=== PATIENT | female | born 1970 | race Caucasian/White ===

== ENCOUNTER 2022-03-19 13:59 | Inpatient (IN) | payer OTHER ==
[~2022-03-19] VITALS: Ht 170.2 cm; Wt 54.0 kg
[2022-03-19] MEDS ORDERED: HALOPERIDOL LACTATE 5 MG/1 ML VIAL ONE (14:04)
[2022-03-19] MEDS ORDERED: diphenhydrAMINE 50 MG/1 ML VIAL ONE (14:05)
[2022-03-19] MEDS ORDERED: IV NORMAL SALINE 1000 ML BAG IV ONE (14:15)
[2022-03-19 15:28] LABS: HEMATOCRIT 38.9 % (31.2-41.9); MEAN CORPUSCULAR HEMOGLOBIN 34.2 uug (24.7-32.8); MEAN CORPUSCULAR VOLUME 92.6 fL (75.5-95.3); PLATELET COUNT (AUTO) 242 K/uL (179-408)
[2022-03-19 15:31] LABS: ALANINE AMINOTRANSFERASE 130 U/L (14-59); ALKALINE PHOSPHATASE 147 U/L (50-136); ASPARTATE AMINOTRANSFERASE 225 U/L (15-37); BILIRUBIN,DIRECT 0.3 mg/dL (0.0-0.2); BILIRUBIN,TOTAL 1.3 mg/dL (0.2-1.0); CARBON DIOXIDE 28 mmol/L (21-32); CREATININE 0.6 mg/dL (0.6-1.3); GLUCOSE 107 mg/dL (74-106); POTASSIUM 3.1 mmol/L (3.5-5.1); TOTAL PROTEIN, SERUM 8.8 g/dL (6.4-8.2); UREA NITROGEN, BLOOD 13 mg/dL (7-18)
--- NOTE | 2022-03-19 15:40 | NUR ---
Social work consult was requested for a patient in the emergency room to assess current living situation. Patient is 52-year-old white female. Patient is disoriented and confused. SW spoke to the patients brother and primary contact, Qamar Odom ([phone]) at the patients bedside. Qamar Odom ([phone]) lives in [place], [place] and flew to [place] today because of the patients condition. Qamar Odom ([phone]) states the patient lives alone at [address], [place] [address]. Qamar Odom ([phone]) states the patient hasnt been taking her hypothyroid medications. Qamar Odom ([phone]) states the patient is currently working for a [employer]. Qamar Odom ([phone]) states the patient does not have a history of substance abuse and he states the patient does not have a history of psychiatric diagnosis. Qamar Odom ([phone]) states he will be in [place] at least until Wednesday. LALO will continue to follow up.
[2022-03-19 15:52] LABS: ACETAMINOPHEN < 2.0 ug/mL (10-30); CHLORIDE 68 mmol/L (98-107)
[2022-03-19 16:06] LABS: ETHANOL < 3 MG/DL (0-0)
[2022-03-19 16:10] LABS: THYROID STIMULATING HORMONE 98.059 mIU/mL (0.358-3.740)
--- NOTE | 2022-03-19 16:28 | NUR ---
Dr Sanchez spoke yto dr dickey, machine wood sander.
[2022-03-19] MEDS ORDERED: HALOPERIDOL LACTATE 5 MG/1 ML VIAL IM ONE (16:45)
[2022-03-19] MEDS ORDERED: diphenhydrAMINE 50 MG/1 ML VIAL IM ONE (16:45)
[2022-03-19] MEDS ORDERED: LEVOTHYROXINE SODIUM 100 MCG VIAL IV ONE ×2 (17:00→17:09)
[2022-03-19 17:16] LABS: CREATININE 0.6 mg/dL (0.6-1.3); POTASSIUM 3.3 mmol/L (3.5-5.1)
--- NOTE | 2022-03-19 17:23 | NUR ---
Pt pulled Iv line out from Rt wrist. Placed a new one on RAC.
--- NOTE | 2022-03-19 18:10 | NUR ---
MRSA and COVID swabs collected and sent to LAB.
[2022-03-19 20:07] LABS: CREATININE 0.5 mg/dL (0.6-1.3); POTASSIUM 2.9 mmol/L (3.5-5.1)
[2022-03-19] MEDS ORDERED: ACETAMINOPHEN 325 MG TABLET PO PRN (20:15)
[2022-03-19] MEDS ORDERED: ONDANSETRON 4 MG/2 ML VIAL IV PRN (20:15)
[2022-03-19] MEDS ORDERED: OLANZAPINE 10 MG VIAL IM PRN (20:15)
[2022-03-19] MEDS ORDERED: MORPHINE SULFATE 2 MG/1 ML DISP.SYRIN IV PRN (20:15)
--- NOTE | 2022-03-19 20:30 | NUR ---
Ultrasound at bedside.
[2022-03-19] MEDS ORDERED: IV NS 1000 ML 1,000 ML IV PRN (21:15)
[2022-03-19] MEDS ORDERED: ENOXAPARIN SODIUM 40 MG/0.4 ML DISP.SYRIN SQ ONE (21:48)
[2022-03-19] MEDS ORDERED: DOCUSATE SODIUM 100 MG CAPSULE PO ONE (21:48)
[2022-03-19] MEDS ORDERED: VANCOMYCIN IV 1,250 MG in IV DEXTROSE 5% 250 ML IV ONE (22:00)
[2022-03-19 22:19] LABS: CREATININE 0.5 mg/dL (0.6-1.3); POTASSIUM 3.6 mmol/L (3.5-5.1)
[2022-03-19] MEDS: DOCUSATE SODIUM 100 MG CAPSULE PO SCH (22:21)
[2022-03-19] MEDS: ENOXAPARIN SODIUM 40 MG/0.4 ML DISP.SYRIN SQ SCH (22:21)
[2022-03-19] MEDS: PIPERACILLIN SODIUM/TAZOBACTAM 3.375 G in IV DEXTROSE 5% 50 ML IV SCH (22:29)
--- NOTE | 2022-03-19 23:30 | NUR ---
Received call from Dr. Mai, ordered BMP @6410 and wants hodgson catheter in place. wants to be informed if Sodium is above 115.
[2022-03-19] MEDS ORDERED: POTASSIUM CHLORIDE 200 ML ONE (23:52)
[2022-03-20] MEDS: POTASSIUM CHLORIDE 10 MEQ, LIDOCAINE-MPF 1% 1 ML in IV DEXTROSE 5% 100 ML IV SCH ×6 (00:01→02:06)
--- NOTE | 2022-03-20 00:33 | NUR ---
Inserted hodgson catheter, pt tolerated procedure well, output of >1100ml urine, urine sample sent to lab.
[2022-03-20 01:27] LABS: *BILIRUBIN,URIN NEGATIVE (NEGATIVE); *CLARITY,URINE CLEAR (CLEAR); *COLOR,URINE YELLOW (YELLOW); *KETONES,URINE 1+ (NEGATIVE); *UROBILINOGEN,URINE 0.2 E.U./dl (NORMAL); LEUKOCYTE ESTERASE ,URINE NEGATIVE (NEGATIVE); NITRITE, URINE NEGATIVE (NEGATIVE); UGLUCOSE NEGATIVE (NEGATIVE)
[2022-03-20 01:31] LABS: *BLOOD, URINE TRACE (NEGATIVE)
[2022-03-20 01:43] LABS: *AMPHETAMINE, URINE NEGATIVE (NEGATIVE); *CANNABINOID, URINE NEGATIVE (NEGATIVE); *COCCAINE, URINE NEGATIVE (NEGATIVE); *OPIATE, URINE NEGATIVE (NEGATIVE); *PHENCYCLIDINE SCREEN,URINE NEGATIVE (NEGATIVE)
[2022-03-20 02:17] LABS: CREATININE 0.5 mg/dL (0.6-1.3); POTASSIUM 3.1 mmol/L (3.5-5.1)
[2022-03-20 02:47] LABS: BACTERIA,URINE FEW /HPF (NONE SEEN); RBC,URINE 0-3 /HPF (0-3); SQUAMOUS EPITHELIAL CELL,UR FEW /HPF (NONE SEEN)
--- NOTE | 2022-03-20 03:03 | NUR ---
Called [facility] to page Dr. Mai to update on critical lab values: Na 110, Cl 74
--- NOTE | 2022-03-20 03:13 | NUR ---
Received call back from Dr. Mai, new orders BMP@0430, urine sodium and osmolality 0430, and increase IV NS fluid to 75 ml/hr.
[2022-03-20] MEDS: PIPERACILLIN SODIUM/TAZOBACTAM 3.375 G in IV DEXTROSE 5% 50 ML IV SCH ×4 (03:55→21:16)
[2022-03-20 04:46] LABS: CREATININE 0.5 mg/dL (0.6-1.3); POTASSIUM 3.4 mmol/L (3.5-5.1)
[2022-03-20] MEDS ORDERED: POTASSIUM CHLORIDE 100 ML ONE (05:26)
[2022-03-20] MEDS ORDERED: POTASSIUM CHLORIDE 50 ML IV SCH (05:30)
[2022-03-20] MEDS: POTASSIUM CHLORIDE 50 ML IV SCH (05:39)
[2022-03-20] MEDS ORDERED: IV SODIUM CHLORIDE 3% 500 ML IV PRN (07:00)
--- NOTE | 2022-03-20 07:14 | NUR ---
Report given to Christal rey.
[2022-03-20] MEDS ORDERED: IV SODIUM CHLORIDE 3% 500 ML IV SCH (07:18)
--- NOTE | 2022-03-20 07:22 | NUR ---
Received endorsement from Timmy ANDERSON
[2022-03-20 07:37] LABS: BILIRUBIN,TOTAL 0.8 mg/dL (0.2-1.0); CREATININE 0.6 mg/dL (0.6-1.3); MAGNESIUM 1.9 mg/dL (1.8-2.4); PHOSPHOROUS 2.2 mg/dL (2.5-4.9); POTASSIUM 3.4 mmol/L (3.5-5.1); TOTAL PROTEIN, SERUM 6.4 g/dL (6.4-8.2); URIC ACID 1.4 mg/dL (2.6-6.0)
[2022-03-20 07:38] LABS: THYROID STIMULATING HORMONE 106.434 mIU/mL (0.358-3.740)
--- NOTE | 2022-03-20 07:42 | NUR ---
Received lab report, Na 112.
[2022-03-20] MEDS: VANCOMYCIN IV 1,000 MG in IV DEXTROSE 5% 250 ML IV SCH ×3 (07:50→22:00)
--- NOTE | 2022-03-20 08:00 | NUR ---
Informed Dr. Kent about Na 112. Ordered fluid intake should only be no more than 800cc/day. Also emphasized that he ordered to stop the NS earlier today, and BMP on 0830 stat for f/u eval.
[2022-03-20 08:12] LABS: HEMATOCRIT 31.2 % (31.2-41.9); MEAN CORPUSCULAR HEMOGLOBIN 33.8 uug (24.7-32.8); MEAN CORPUSCULAR VOLUME 93.3 fL (75.5-95.3); PLATELET COUNT (AUTO) 221 K/uL (179-408)
--- NOTE | 2022-03-20 08:28 | NUR ---
Called [facility] to lauren Burrell NP.
--- NOTE | 2022-03-20 08:30 | NUR ---
Called [facility] to page Dr. Redman. Regarding Dr. Mai's request to change pt's status to ICU.
--- NOTE | 2022-03-20 08:34 | NUR ---
Spoke to Dr. Redman, pt will now be ICU.
[2022-03-20] MEDS: PANTOPRAZOLE SODIUM 40 MG VIAL IV SCH (09:00)
[2022-03-20] MEDS ORDERED: FUROSEMIDE 20 MG/2 ML VIAL IV SCH (09:00)
[2022-03-20] MEDS ORDERED: PANTOPRAZOLE SODIUM 40 MG VIAL ONE (09:24)
[2022-03-20] MEDS ORDERED: PIPERACILLIN/TAZOBACTAM/D5W 50 ML IV ONE (09:24)
[2022-03-20] MEDS ORDERED: LEVOTHYROXINE SODIUM 100 MCG VIAL IV ONE ×2 (09:28→10:07)
[2022-03-20 09:34] LABS: CREATININE 0.6 mg/dL (0.6-1.3); POTASSIUM 3.8 mmol/L (3.5-5.1)
--- NOTE | 2022-03-20 09:39 | NUR ---
Received lab report, Na 111. notified.
[2022-03-20] MEDS ORDERED: NEUTRA PHOS PACKET PO ONE (09:45)
--- NOTE | 2022-03-20 09:45 | NUR ---
Received T.O from Dr. Mai, BMP stat q2h starting at 1030am. Noted and carried out.
--- NOTE | 2022-03-20 10:27 | NUR ---
Spoke to Dr. Redman about pt's level of care status. Pt will be on MOON per Dr. Redman. Dr. Mai has been notified.
--- NOTE | 2022-03-20 10:28 | NUR ---
Hold IV Vancomycin dose at 2200 if the Vanco-trough came back above 20 per pharmacist. Will inform charge nurse during transition.
[2022-03-20 10:43] LABS: CREATININE 0.5 mg/dL (0.6-1.3); POTASSIUM 3.6 mmol/L (3.5-5.1)
[2022-03-20 12:50] LABS: CREATININE 0.6 mg/dL (0.6-1.3); POTASSIUM 3.6 mmol/L (3.5-5.1)
--- NOTE | 2022-03-20 13:35 | NUR ---
Pt had bowel movement x1, amt = large, consistency = soft, dark green in color.
--- NOTE | 2022-03-20 14:07 | NUR ---
IV NS 3% 500ml discontinued per Dr. Mai.
--- NOTE | 2022-03-20 14:29 | NUR ---
Received report regarding result of CT Abdomen/Pelvis, suspicious for acute pancreatitis.
--- NOTE | 2022-03-20 14:36 | NUR ---
Will review and redo I&O to be totaled at the end of the shift.
[2022-03-20 14:43] LABS: CREATININE 0.6 mg/dL (0.6-1.3)
[2022-03-20 14:49] LABS: POTASSIUM 2.2 mmol/L (3.5-5.1)
--- NOTE | 2022-03-20 15:27 | NUR ---
Received lab report: Ca = 5.0, Na = 110, K = 2.2, Glucose = 613. Dr. Redman was notified, ordered to do accu check, result 127.
--- NOTE | 2022-03-20 15:27 | NUR ---
Dr. Redman ordered to d/c q2h BMP (ordered by Dr. Mai) and have BMP @ 1800 instead. Noted and carried out.
--- NOTE | 2022-03-20 16:45 | NUR ---
Pt had BM #2, amt.= small, consistency = soft.
[2022-03-20 16:54] LABS: CREATININE 0.7 mg/dL (0.6-1.3); POTASSIUM 3.9 mmol/L (3.5-5.1)
--- NOTE | 2022-03-20 17:00 | NUR ---
Rt=039, MD notified. Ordered to restart 3% NS 500ml at 25cc/hr for 6hours only and BMP at 2100. Noted and carried out.
[2022-03-20 18:49] LABS: CREATININE 0.7 mg/dL (0.6-1.3); POTASSIUM 3.3 mmol/L (3.5-5.1)
--- NOTE | 2022-03-20 19:08 | NUR ---
Na = 115, notified Dr. Redman and Dr. Mai.
--- NOTE | 2022-03-20 19:09 | NUR ---
Endorsed to Timmy TEJEDA.
[2022-03-20] MEDS: DOCUSATE SODIUM 100 MG CAPSULE PO SCH (21:00)
[2022-03-20] MEDS ORDERED: ENOXAPARIN SODIUM 40 MG/0.4 ML DISP.SYRIN SQ ONE (21:08)
[2022-03-20] MEDS: ENOXAPARIN SODIUM 40 MG/0.4 ML DISP.SYRIN SQ SCH (21:17)
--- NOTE | 2022-03-20 21:34 | NUR ---
Pt had a bowel movement, diarrhea, held colace.
--- NOTE | 2022-03-20 22:10 | NUR ---
Held Vancomycin due to trough > 20, 34.2.
[2022-03-21] MEDS: PIPERACILLIN SODIUM/TAZOBACTAM 3.375 G in IV DEXTROSE 5% 50 ML IV SCH ×4 (03:44→22:37)
[2022-03-21 04:13] LABS: CREATININE 0.8 mg/dL (0.6-1.3); POTASSIUM 4.1 mmol/L (3.5-5.1)
[2022-03-21] MEDS: VANCOMYCIN IV 1,000 MG in IV DEXTROSE 5% 250 ML IV SCH (06:00)
[2022-03-21 06:25] LABS: HEMATOCRIT 30.3 % (31.2-41.9); MEAN CORPUSCULAR HEMOGLOBIN 33.8 uug (24.7-32.8); MEAN CORPUSCULAR VOLUME 94.4 fL (75.5-95.3); PLATELET COUNT (AUTO) 188 K/uL (179-408)
--- NOTE | 2022-03-21 06:39 | NUR ---
Received call back from Dr. Latrell Mai, new orders of bolus D5W 1000ml IV, and D5W 200cc/hr.
[2022-03-21 06:42] LABS: BILIRUBIN,TOTAL 0.7 mg/dL (0.2-1.0); MAGNESIUM 1.9 mg/dL (1.8-2.4); PHOSPHOROUS 3.3 mg/dL (2.5-4.9); POTASSIUM 3.4 mmol/L (3.5-5.1); TOTAL PROTEIN, SERUM 5.7 g/dL (6.4-8.2)
[2022-03-21] MEDS ORDERED: IV D5W 1000ML 1,000 ML IV ONE (06:45)
--- NOTE | 2022-03-21 06:50 | NUR ---
Received call back from Dr. Latrell Mai, cancel the D5W order due to Na 118, repeat BMP@ 0900.
--- NOTE | 2022-03-21 07:12 | NUR ---
Report given to Christal rey.
--- NOTE | 2022-03-21 07:17 | NUR ---
Received endorsement from Timmy ANDERSON
[2022-03-21] MEDS ORDERED: PANTOPRAZOLE SODIUM 40 MG VIAL ONE (09:08)
[2022-03-21] MEDS: PANTOPRAZOLE SODIUM 40 MG VIAL IV SCH (09:20)
[2022-03-21 09:36] LABS: POTASSIUM 3.3 mmol/L (3.5-5.1)
--- NOTE | 2022-03-21 09:52 | NUR ---
Lab report, Px=821. Dr. Redman and Dr. Mai notified.
--- NOTE | 2022-03-21 09:53 | NUR ---
Dr. Mai ordered another BMP @ 12pm. Noted and carried out.
[2022-03-21] MEDS ORDERED: POTASSIUM CHLORIDE 20 MEQ TAB.PRT.SR PO ONE (10:30)
--- NOTE | 2022-03-21 10:49 | NUR ---
Viviana adler in EDM - 03/21/22 at 1115 by FRANCOIS BP =92/48. Restarting Levophed.
[2022-03-21] MEDS ORDERED: POTASSIUM CHLORIDE 20 MEQ TAB.PRT.SR ONE (10:59)
[2022-03-21 13:02] LABS: CREATININE 1.2 mg/dL (0.6-1.3); POTASSIUM 3.2 mmol/L (3.5-5.1)
[2022-03-21 14:19] LABS: ABG BASE EXCESS -3.1 mmol/L; ABG HCO3 20.4 mmol/L; ABG PCO2 31.8 mmHg (35.0-45.0); ABG PH 7.426 (7.350-7.450); ABG PO2 213.6 mmHg (75.0-100.0); ABG SITE RIGHT RADIAL; COHb 0.3 % (0.5-1.5); MetHb 0.4 % (0.0-1.5); O2Hb 98.5 % (94.0-97.0); VENT MODE Nasal Cannula
--- NOTE | 2022-03-21 15:30 | NUR ---
Pt was desating to less than 50% when sleeping x2. Notified Dr. Redman, ordered CXR and ABG stat. ABG and CXR were normal, relayed to Dr. Redman. [facility].
--- NOTE | 2022-03-21 17:10 | NUR ---
On NPO solomon 03/22/22 Celio
[2022-03-21] MEDS ORDERED: ACETAMINOPHEN 650 MG SUPP.RECT RC PRN (17:15)
--- NOTE | 2022-03-21 17:24 | NUR ---
Seen by Dr. Redman.
[2022-03-21] MEDS ORDERED: LEVOTHYROXINE SODIUM 100 MCG VIAL IV ONE ×2 (17:56→18:12)
[2022-03-21 18:12] LABS: CREATININE 1.1 mg/dL (0.6-1.3); POTASSIUM 3.2 mmol/L (3.5-5.1)
[2022-03-21] MEDS: POTASSIUM CHLORIDE 20 MEQ in IV D5/ 0.9% NACL 1,000 ML IV PRN ×2 (18:19→22:37)
--- NOTE | 2022-03-21 18:35 | NUR ---
Na = 121. Notified Dr. Redman and Dr. Mai.
--- NOTE | 2022-03-21 19:10 | NUR ---
Endorsed to Timmy TEJEDA.
--- NOTE | 2022-03-21 21:00 | NUR ---
Report given to Stefany TEJEDA MOON.
--- NOTE | 2022-03-21 21:40 | NUR ---
REPORT WAS CALLED [id number] AND GIVEN TO KSENIA THE RN. PATIENT WAS TRANSFERED TO ROOM 321 FOR A CONTINUED EXPERT CARE.
[2022-03-21] MEDS: ENOXAPARIN SODIUM 40 MG/0.4 ML DISP.SYRIN SQ SCH (22:40)
[2022-03-21 22:46] VITALS: BP 119/87
[2022-03-22] MEDS: PIPERACILLIN SODIUM/TAZOBACTAM 3.375 G in IV DEXTROSE 5% 50 ML IV SCH ×2 (03:00→09:37)
[2022-03-22 04:00] VITALS: BP 114/55
[2022-03-22 04:36] VITALS: BP 114/55
--- NOTE | 2022-03-22 06:00 | NUR ---
2109-RECEIVED PT FROM ER AND REPORT GIVEN FROM NIKHIL POWERS. PT HAS BEEN A/OX3-4. VS HAVE BEEN STABLE. IV I/P VIA R/L ARM. PT HAS RESPS REG/UNLAB. PT IS ON RA. PT HAS F/C-U/O FAIR/AVANI-CLR. PT DENIES ANY PAIN. PT HAS SKIN TEAR ON LEFT ARM. PT HAS REDNESS OF BUTTOCKS WITH OLD SCARRING. PICTURES TAKEN. PT ENDORSED TO DAYSHIFT RN IN STABLE COND. CATHY TEJEDA
[2022-03-22] MEDS ORDERED: PANTOPRAZOLE SODIUM 40 MG TABLET.DR PO SCH (07:00)
[2022-03-22 07:28] LABS: HEMATOCRIT 28.2 % (31.2-41.9); MEAN CORPUSCULAR HEMOGLOBIN 34.6 uug (24.7-32.8); MEAN CORPUSCULAR VOLUME 94.9 fL (75.5-95.3); PLATELET COUNT (AUTO) 164 K/uL (179-408)
[2022-03-22 07:41] LABS: BILIRUBIN,TOTAL 0.5 mg/dL (0.2-1.0); CREATININE 1.3 mg/dL (0.6-1.3); MAGNESIUM 1.8 mg/dL (1.8-2.4); PHOSPHOROUS 3.1 mg/dL (2.5-4.9); POTASSIUM 3.3 mmol/L (3.5-5.1); TOTAL PROTEIN, SERUM 5.5 g/dL (6.4-8.2); VANCOMYCIN,RANDOM 20.3 ug/mL (18.0-26.0)
[2022-03-22 07:59] VITALS: BP 96/61
--- NOTE | 2022-03-22 08:00 | NUR ---
Pt. alert oriented x 2 with episodes of confusion. Denies any pain, comfortable and no s/s of sob/respiratory distress. Keep pt. NPO as ordered. Edema on the shelly. eyelids noted.
[2022-03-22 08:29] LABS: THYROID STIMULATING HORMONE 108.697 mIU/mL (0.358-3.740)
[2022-03-22] MEDS: PANTOPRAZOLE SODIUM 40 MG VIAL IV SCH (09:33)
[2022-03-22] MEDS: LEVOTHYROXINE SODIUM 100 MCG VIAL IV SCH (10:39)
[2022-03-22] MEDS: POTASSIUM CHLORIDE 50 ML IV SCH ×2 (10:40→11:40)
[2022-03-22 11:45] VITALS: BP 111/70
--- NOTE | 2022-03-22 12:30 | NUR ---
Notified Dr Redman pt is hypothermic 94.6. Initiated carolina resendiz. Will continue to monitor pt.
--- NOTE | 2022-03-22 14:30 | NUR ---
Notified Dr Redman pt is still hypothermic 94.0 . No new orders received. Will continue to monitor.
[2022-03-22 15:18] LABS: CREATININE 1.4 mg/dL (0.6-1.3); POTASSIUM 3.7 mmol/L (3.5-5.1)
--- NOTE | 2022-03-22 16:00 | NUR ---
Notified Dr Mai of repeat BNP results drawn at 1500. Notified low urine output of 60cc within 4 hours. New order received and carried out.
[2022-03-22 16:54] VITALS: BP 92/54
[2022-03-22] MEDS: IV NS 1000 ML 1,000 ML IV PRN (17:27)
--- NOTE | 2022-03-22 18:30 | NUR ---
Current pt. temperature 97.4. Pt comfortable, frequent skin check done q 30 mins. No redness noted from carolina hugger/warming blanket..
[2022-03-22] MEDS: ENOXAPARIN SODIUM 40 MG/0.4 ML DISP.SYRIN SQ SCH (21:29)
[2022-03-22 22:14] VITALS: BP 92/49
[2022-03-23 04:17] VITALS: BP 100/59
[2022-03-23 07:03] LABS: HEMATOCRIT 27.2 % (31.2-41.9); MEAN CORPUSCULAR HEMOGLOBIN 34.8 uug (24.7-32.8); MEAN CORPUSCULAR VOLUME 95.5 fL (75.5-95.3); PLATELET COUNT (AUTO) 163 K/uL (179-408)
[2022-03-23 07:16] LABS: BILIRUBIN,TOTAL 0.5 mg/dL (0.2-1.0); CREATININE 1.6 mg/dL (0.6-1.3); MAGNESIUM 1.7 mg/dL (1.8-2.4); PHOSPHOROUS 2.6 mg/dL (2.5-4.9); POTASSIUM 3.7 mmol/L (3.5-5.1); TOTAL PROTEIN, SERUM 5.8 g/dL (6.4-8.2)
--- NOTE | 2022-03-23 07:30 | NUR ---
Pt hypothermic temp 94.0 put carolina hugger (warming blanket) back on and notified dr rdz of low temp. pt lethargic unable to communicate. Turned pt q 2 hrs implemented. IV infusing as ordered. Pt alert x 1 to her name - pt forget. Left FA skin take noted - awaiting wound consult. will continue to monitor patient.
[2022-03-23] MEDS: LEVOTHYROXINE SODIUM 100 MCG VIAL IV SCH (08:25)
[2022-03-23 08:27] VITALS: BP 107/77
[2022-03-23] MEDS: PANTOPRAZOLE SODIUM 40 MG VIAL IV SCH (08:27)
[2022-03-23] MEDS ORDERED: MAGNESIUM SULFATE/D5W 100 ML IV SCH (11:00)
[2022-03-23] MEDS ORDERED: LEVOTHYROXINE SODIUM 100 MCG VIAL IV ONE (11:00)
[2022-03-23 12:03] VITALS: BP 104/56
--- NOTE | 2022-03-23 14:33 | NUR ---
PT temp 97.6 warming blanket off pt. frequent skin check implemented. No redness noted on skin. brother Qamar at bedside. Pt more awake and alert. Pt alert to her name and place. Pt using her phone. Will continue to monitor patient.
[2022-03-23] MEDS: IV NS 1000 ML 1,000 ML IV PRN (15:30)
[2022-03-23 16:47] VITALS: BP 108/66
--- NOTE | 2022-03-23 18:39 | NUR ---
Kept warming blanket on lowest setting. current temp 98.4 frequent skin check done and skin intact no burned skin noted
[2022-03-23 20:00] VITALS: BP 112/61
[2022-03-23] MEDS: ENOXAPARIN SODIUM 40 MG/0.4 ML DISP.SYRIN SQ SCH (20:24)
[2022-03-24 01:02] VITALS: BP 128/75
[2022-03-24] MEDS: IV NS 1000 ML 1,000 ML IV PRN ×2 (02:24→13:26)
[2022-03-24 04:20] VITALS: BP 119/79
--- NOTE | 2022-03-24 06:14 | NUR ---
Patient rested well in between care; pt temp as charted; continued warming machine; pt more alert and oriented x3; needs attended; continue to monitor; continue plan of care.
[2022-03-24 06:37] LABS: CREATININE 1.6 mg/dL (0.6-1.3); MAGNESIUM 2.1 mg/dL (1.8-2.4); POTASSIUM 3.4 mmol/L (3.5-5.1)
--- NOTE | 2022-03-24 08:00 | NUR ---
Pt is in no acute distress. Pt alert and oriented x 4. Pts temp 96.4 will continue with the warming blanket on low settings. applied mepilex pt's left arm skin tare awaiting wound consult.
[2022-03-24] MEDS: PANTOPRAZOLE SODIUM 40 MG VIAL IV SCH (08:44)
[2022-03-24] MEDS: LEVOTHYROXINE SODIUM 100 MCG VIAL IV SCH (08:44)
[2022-03-24] MEDS ORDERED: POTASSIUM CHLORIDE 50 ML IV SCH (10:30)
[2022-03-24 10:57] VITALS: BP 118/83
[2022-03-24 13:23] LABS: *BILIRUBIN,URIN NEGATIVE (NEGATIVE); *BLOOD, URINE NEGATIVE (NEGATIVE); *CLARITY,URINE CLEAR (CLEAR); *COLOR,URINE YELLOW (YELLOW); *KETONES,URINE NEGATIVE (NEGATIVE); *UROBILINOGEN,URINE 0.2 E.U./dl (NORMAL); LEUKOCYTE ESTERASE ,URINE NEGATIVE (NEGATIVE); NITRITE, URINE NEGATIVE (NEGATIVE); PH,URINE 5.5 (5.0-8.0); UGLUCOSE NEGATIVE (NEGATIVE)
[2022-03-24 13:35] LABS: *CREATININE,URINE 40.1 mg/dL (30-125); *URINE TOTAL PROTEIN RANDOM 8.3 mg/dL (<150/24HR)
[2022-03-24 15:42] VITALS: BP 111/75
--- NOTE | 2022-03-24 15:56 | NUR ---
LALO consult was requested for a patient on [facility] for mental health resources. Patient is a 52-year-old female admitted to the hospital for hyponatremia. Patient is alert and oriented X4. Patient presents with anxious mood and congruent affect. Patient states that her primary contact is her brother, Qamar Odom ([phone]) and her mother, Ervin ([phone]) and they live in [place]. Patient states she currently resides at [address], [place] [address]. Patient states she is not currently driving, does not have any medical equipment at home and is not employed. Patient states she filed for unemployment in February. Patient denies a history of substance abuse and the toxicology report is negative. Patient denies a history of psychiatric diagnosis. Patient denies suicidal or homicidal ideation. LALO provided the patient with the mental health resource for [facility] [address] [place] [address] ([phone]), [facility] [address] [address]. [facility] [address] [address], and [facility] [address] [address], [place] [id number]. Patient states her plan for discharge is to go home to [address], [place] [address].
--- NOTE | 2022-03-24 19:40 | NUR ---
Received patient in bed, alert oriented, no sob no chest pain, on bear hugger current temp 98.7, patient has no complain of pain, hodgson cath patent, draining with yellow color urine, with lower extremities edema, and facial/eye orbital mild swelling when received, patient eating dinner, tolerate well, calm and cooperative at this time, con to monitor.
[2022-03-24 20:00] VITALS: BP 143/122
[2022-03-24] MEDS: ENOXAPARIN SODIUM 40 MG/0.4 ML DISP.SYRIN SQ SCH (21:20)
[2022-03-25] MEDS: IV NS 1000 ML 1,000 ML IV PRN ×3 (01:30→21:00)
--- NOTE | 2022-03-25 04:35 | NUR ---
Patient asleep but arousable, no sob no chest pain, sinus rhythm on tele, no complain of pain, patient calm and cooperative at this time, cont on bear hugger current temp 98.8 cont to monitor.
[2022-03-25 06:51] VITALS: BP 128/81
[2022-03-25 06:56] LABS: HEMATOCRIT 22.7 % (31.2-41.9); MEAN CORPUSCULAR HEMOGLOBIN 34.7 uug (24.7-32.8); MEAN CORPUSCULAR VOLUME 96.9 fL (75.5-95.3); PLATELET COUNT (AUTO) 141 K/uL (179-408)
[2022-03-25 07:12] LABS: BILIRUBIN,TOTAL 0.3 mg/dL (0.2-1.0); CREATININE 1.6 mg/dL (0.6-1.3); MAGNESIUM 1.7 mg/dL (1.8-2.4); POTASSIUM 3.2 mmol/L (3.5-5.1); TOTAL PROTEIN, SERUM 5.3 g/dL (6.4-8.2)
--- NOTE | 2022-03-25 08:00 | NUR ---
AWAKE ALERT AND VERBALLY RESPONSIVE, ANSWERS SIMPLE QUESTIONS APPROPRIATELY. WARM BLANKET DISCONTINUED. TEMP RECTALLY 98.1. NO SS OF PAIN OR DISTRESS. SR ON MONITOR
[2022-03-25 08:05] VITALS: BP 123/79
[2022-03-25] MEDS: PANTOPRAZOLE SODIUM 40 MG VIAL IV SCH (09:06)
[2022-03-25] MEDS: LEVOTHYROXINE SODIUM 100 MCG VIAL IV SCH (09:14)
[2022-03-25] MEDS ORDERED: POTASSIUM CHLORIDE 10 MEQ TAB.PRT.SR PO ONE (11:00)
--- NOTE | 2022-03-25 11:30 | NUR ---
SEEN BY DR ANDERSON FOR FOLLOW-UP VISIT, STATUS CHANGED TO TELE. SEEN BY PHYSICAL THERAPIST PATIENT PARTICIPATED AND TOLERATED WELL. SEE NOTES
[2022-03-25 11:42] VITALS: BP 126/84
[2022-03-25] MEDS ORDERED: MAGNESIUM OXIDE 400 MG TABLET PO ONE (12:00)
--- NOTE | 2022-03-25 12:26 | NUR ---
WOUND CARE CONSULT: PT PRESENTS WITH LEFT ARM SKIN TEAR, PRESENT ON ADMISSION. RECOMMENDATIONS MADE FOR SKIN PROTECTION AND WOUND CARE. DISCUSSED WITH NURSING STAFF. ANT AYN. IN AGREEMENT WITH PLAN OF CARE. Addendum: 03/25/22 at 1228 by YUSUF FORD RN Amended: Links added.
[2022-03-25 15:41] VITALS: BP 132/90
--- NOTE | 2022-03-25 16:20 | NUR ---
CAIN CATH DISCONTINUED, PATIENT ALSO HAD LARGE AMOUNT OF LOOSE STOOL. KEPT CLEAN AND DRY
--- NOTE | 2022-03-25 19:35 | NUR ---
Patient alert oriented, no sob no chest pain, continent of bladder, assisted to commode for bladder eliminations, no complain of pain, cont to monitor.
[2022-03-25 20:00] VITALS: BP 120/84
[2022-03-25] MEDS: ENOXAPARIN SODIUM 40 MG/0.4 ML DISP.SYRIN SQ SCH (22:01)
[2022-03-26] VITALS: BP 128/81
--- NOTE | 2022-03-26 05:50 | NUR ---
Patient asleep, no sob no chest pain, sinus rhythm on tele, no complain of pain, uses bedside commode and diaper for urination, cont to monitor.
[2022-03-26 06:13] VITALS: BP 113/70
[2022-03-26 07:22] LABS: CREATININE 1.5 mg/dL (0.6-1.3); MAGNESIUM 1.7 mg/dL (1.8-2.4); POTASSIUM 3.6 mmol/L (3.5-5.1)
--- NOTE | 2022-03-26 07:41 | NUR ---
UP ON THE EDGE OF BED ALERT AND COHERENT , ANSWERS SIMPLE QUESTIONS APPROPRIATELY. INCONTINENT OF URINE AM CARE DONE. SR ON MONITOR
[2022-03-26] MEDS: PANTOPRAZOLE SODIUM 40 MG VIAL IV SCH (08:20)
[2022-03-26] MEDS: LEVOTHYROXINE SODIUM 100 MCG VIAL IV SCH (08:20)
[2022-03-26] MEDS: IV NS 1000 ML 1,000 ML IV PRN ×2 (08:22→17:48)
--- NOTE | 2022-03-26 10:50 | NUR ---
SW spoke to patient and patients mother at bedside. Patient is alert and oriented X4. Patient states she is not open to a board and care, but is open to home health services. SW informed case assistantMilo.
[2022-03-26] MEDS ORDERED: MAGNESIUM SULFATE/D5W 100 ML IV SCH (11:30)
[2022-03-26 11:52] VITALS: BP 134/95
--- NOTE | 2022-03-26 12:00 | NUR ---
CONTINUE GOOD PARTICIPATION WITH PT SEE NOTESSR ON MONITOR
[2022-03-26 16:18] VITALS: BP 136/83
[2022-03-26 20:00] VITALS: BP 118/66
[2022-03-26] MEDS: ENOXAPARIN SODIUM 40 MG/0.4 ML DISP.SYRIN SQ SCH (21:04)
[2022-03-27] VITALS: BP 96/69
[2022-03-27 04:00] VITALS: BP 118/78
[2022-03-27] MEDS: IV NS 1000 ML 1,000 ML IV PRN ×3 (04:12→15:00)
[2022-03-27] MEDS: LEVOTHYROXINE SODIUM 200 MCG TABLET PO SCH (06:26)
[2022-03-27] MEDS: PANTOPRAZOLE SODIUM 40 MG TABLET.DR PO SCH (06:27)
[2022-03-27 06:35] LABS: CREATININE 1.4 mg/dL (0.6-1.3); MAGNESIUM 1.9 mg/dL (1.8-2.4); POTASSIUM 3.8 mmol/L (3.5-5.1)
[2022-03-27 11:52] VITALS: BP 131/83
[2022-03-27 15:48] VITALS: BP 137/77
[2022-03-27 20:00] VITALS: BP 125/79
[2022-03-27] MEDS: ENOXAPARIN SODIUM 40 MG/0.4 ML DISP.SYRIN SQ SCH (21:07)
[2022-03-28] VITALS: BP 135/85
[2022-03-28 04:00] VITALS: BP 137/86
[2022-03-28] MEDS: PANTOPRAZOLE SODIUM 40 MG TABLET.DR PO SCH (06:13)
[2022-03-28] MEDS: LEVOTHYROXINE SODIUM 200 MCG TABLET PO SCH (06:13)
[2022-03-28] MEDS: ENSURE ENLIVE (VAN) 240 ML LIQUID PO SCH (08:22)
[2022-03-28 12:49] VITALS: BP 142/91
--- NOTE | 2022-03-28 14:33 | NUR ---
Patient noted with generalized edema MD made aware order received to discontinue IV fluid.
[2022-03-28 16:20] VITALS: BP 140/98
[2022-03-28 20:40] VITALS: BP 148/87
[2022-03-28] MEDS: ENOXAPARIN SODIUM 40 MG/0.4 ML DISP.SYRIN SQ SCH (21:02)
[2022-03-29 00:29] VITALS: BP 143/94
[2022-03-29 04:20] VITALS: BP 152/87
[2022-03-29] MEDS: PANTOPRAZOLE SODIUM 40 MG TABLET.DR PO SCH (06:16)
[2022-03-29] MEDS: LEVOTHYROXINE SODIUM 200 MCG TABLET PO SCH (06:16)
[2022-03-29] MEDS: ENSURE ENLIVE (VAN) 240 ML LIQUID PO SCH (08:52)
--- NOTE | 2022-03-29 10:00 | NUR ---
PATIENT IS AWAKE ALERT VERBALLY RESPONSIVE BUT FORGETFUL AT TIMES DENIES PAIN OR DISCOMFORTS AT THIS TIME.REMAIN ON O2 WITH NO SHORTNESS OF BREATH AT THIS TIME.CALL LIGHTS AND PERSONAL BELONGINGS ARE WITHIN EASY REACH WILL CONTINUE TO OBSERVE.
[2022-03-29 11:33] VITALS: BP 140/86
[2022-03-29 16:42] VITALS: BP 143/89
--- NOTE | 2022-03-29 18:00 | NUR ---
RESTING IN BED DENIES DISCOMFORTS NOT IN DISTRESS AT THIS TIME.
[2022-03-29 20:31] VITALS: BP 126/83
[2022-03-29] MEDS: ENOXAPARIN SODIUM 40 MG/0.4 ML DISP.SYRIN SQ SCH (21:00)
[2022-03-30] VITALS (7 sets, daily range): BP systolic 123–138; BP diastolic 75–88
[2022-03-30] MEDS: LEVOTHYROXINE SODIUM 150 MCG TABLET PO SCH (06:10)
[2022-03-30] MEDS: PANTOPRAZOLE SODIUM 40 MG TABLET.DR PO SCH (06:10)
--- NOTE | 2022-03-30 07:45 | NUR ---
RECEIVED PATIENT IN BED AWAKE ALERT AND VERBALLY RESPONSIVE DENIES PAIN POR DISCOMFORTS AT THIS TIME.CALL LIGHTS AND PERSONAL BELONGINGS ARE WITHIN EASY REACH WILL CONTINUE TO OBSERVE.
[2022-03-30 09:01] LABS: MEAN CORPUSCULAR HEMOGLOBIN 34.3 uug (24.7-32.8); MEAN CORPUSCULAR VOLUME 99.6 fL (75.5-95.3); PLATELET COUNT (AUTO) 201 K/uL (179-408)
[2022-03-30 09:14] LABS: BILIRUBIN,TOTAL 0.3 mg/dL (0.2-1.0); CREATININE 1.5 mg/dL (0.6-1.3); MAGNESIUM 1.8 mg/dL (1.8-2.4); PHOSPHOROUS 3.4 mg/dL (2.5-4.9); TOTAL PROTEIN, SERUM 5.7 g/dL (6.4-8.2)
[2022-03-30] MEDS: ENSURE ENLIVE (VAN) 240 ML LIQUID PO SCH (09:36)
[2022-03-30 10:30] LABS: HEMATOCRIT 19.5 % (31.2-41.9)
--- NOTE | 2022-03-30 10:39 | NUR ---
ABNORMAL LAB RESULTS PER LAB H/H 6.7/19.5 RECEIVED AND CALLED TO DR MACE WITH NO NEW ORDERS AT THIS TIME.
--- NOTE | 2022-03-30 11:25 | NUR ---
NEW ORDERS NOTED TO TRANSFUSE ONE UNIT OF PRBC AND NOTED
--- NOTE | 2022-03-30 14:26 | NUR ---
PATIENT HAS NO IV LINE AND IS BEING PREPPED FOR BLOOD TRANSFUSSION MULTIPLE ATTEMPTS FAILED MD AWARE PATIENT NEEDS A MID LINE WITH OKAY.
--- NOTE | 2022-03-30 15:45 | NUR ---
MID LINE INSERTED TO HER RIGHT UPPER ARM GAUGE 18 AWAITING FOR THE ONE UNIT PRBC TO BE READY.
[2022-03-30 16:37] LABS: EOSINOPHILS % (MANUAL) 1 % (0-8)
--- NOTE | 2022-03-30 18:00 | NUR ---
CONSCENT READY BLOOD TRANSFUSSION SET UP READY AWAITING FOR THE LAB TO NOTIFY US THAT THE BLOOD IS READY.
--- NOTE | 2022-03-30 20:00 | NUR ---
PATIENT AWAKE IN BED. A/O X3. VSS. DENIES ANY PAIN OR DISCOMFORT. NO RESP. DISTRESS NOTED. ON O2 2L NC SATING 95%. CALL LIGHT IN REACH. ALL NEEDS ATTENDED. WILL CONTINUE TO MONITOR AND ASSESS.
[2022-03-30] MEDS: ENOXAPARIN SODIUM 40 MG/0.4 ML DISP.SYRIN SQ SCH ×2 (20:44→20:51)
[2022-03-31 00:10] VITALS: BP 138/85
[2022-03-31 04:00] VITALS: BP 124/76
[2022-03-31] MEDS: LEVOTHYROXINE SODIUM 150 MCG TABLET PO SCH (06:24)
[2022-03-31] MEDS: PANTOPRAZOLE SODIUM 40 MG TABLET.DR PO SCH (06:24)
[2022-03-31] MEDS: ENSURE ENLIVE (VAN) 240 ML LIQUID PO SCH (08:22)
--- NOTE | 2022-03-31 10:00 | NUR ---
PATIENT IS AWAKE ALERT AND AWARE SEEN WALKING WITH THE PHYSICAL THERAPY WITH FAIR ENDURANCE.NOTED THAT PATIENT HAS NO ORDERS FOR A REPEAT ORDERED FOR CBC PATIENT WAS GIVEN ONE UNIT PRBC LAST NITE BUT NO ORDER TO REPEAT CBC WITH NEW ORDERS AND NOTED.
[2022-03-31 10:49] LABS: HEMATOCRIT 25.3 % (31.2-41.9); MEAN CORPUSCULAR VOLUME 94.5 fL (75.5-95.3); PLATELET COUNT (AUTO) 250 K/uL (179-408)
[2022-03-31 11:10] LABS: CREATININE 1.6 mg/dL (0.6-1.3); POTASSIUM 3.9 mmol/L (3.5-5.1)
--- NOTE | 2022-03-31 11:30 | NUR ---
PATIENT SEEN BY THE PHYSICAL THERAPY AND SHE AMBULATED IN THE HALLWAY SBA WITH FAIR ENDURANCE AND BACK TO ROOM
[2022-03-31 11:43] VITALS: BP 138/86
[2022-03-31 16:30] VITALS: BP 134/88
--- NOTE | 2022-03-31 16:57 | NUR ---
PATIENT COMPLAINING OF COUGH STATED HAS BEEN HAVING THIS COUGH ON AND OFF BUT MORE SO TODAY NOTIFIED FUNMILAYO RODRÍGUEZ WITH ORDERS AND NOTED.
[2022-03-31] MEDS: GUAIFENESIN/DEXTROMETHORPHAN 5 ML UDC PO PRN (17:12)
--- NOTE | 2022-03-31 18:00 | NUR ---
PATIENT IS RESTING ATE HER DINNER STATED THAT THE MEDICATION THAT SHE GOT FOR HER COUGH WAS HELPFUL
[2022-03-31 21:29] VITALS: BP 149/81
[2022-03-31 23:34] LABS: BAND % (MANUAL) 1 % (0-10); LYMPHOCYTES % (MANUAL) 7 % (20-40); MONOCYTES % (MANUAL) 4 % (2-10); NEUTROPHILS % (MANUAL) 87 % (42-75)
[2022-04-01] MEDS: PANTOPRAZOLE SODIUM 40 MG TABLET.DR PO SCH (06:13)
[2022-04-01] MEDS: LEVOTHYROXINE SODIUM 150 MCG TABLET PO SCH (06:13)
[2022-04-01 07:25] LABS: HEMATOCRIT 22.9 % (31.2-41.9); MEAN CORPUSCULAR HEMOGLOBIN 32.6 uug (24.7-32.8); MEAN CORPUSCULAR VOLUME 93.8 fL (75.5-95.3); PLATELET COUNT (AUTO) 265 K/uL (179-408)
[2022-04-01 07:53] LABS: BILIRUBIN,TOTAL 0.4 mg/dL (0.2-1.0); CREATININE 1.5 mg/dL (0.6-1.3); MAGNESIUM 1.9 mg/dL (1.8-2.4); PHOSPHOROUS 3.6 mg/dL (2.5-4.9); TOTAL PROTEIN, SERUM 5.7 g/dL (6.4-8.2)
[2022-04-01 08:00] VITALS: BP 121/86
[2022-04-01 09:00] VITALS: BP 121/86
[2022-04-01] MEDS: ENSURE ENLIVE (VAN) 240 ML LIQUID PO SCH (09:08)
[2022-04-01] MEDS: GUAIFENESIN/DEXTROMETHORPHAN 5 ML UDC PO PRN ×2 (09:08→15:45)
[2022-04-01 15:30] LABS: *OCCULT BLOOD STOOL NEGATIVE (NEGATIVE)
[2022-04-01 20:00] VITALS: BP 136/74
--- NOTE | 2022-04-01 20:00 | NUR ---
RECEIVED REPORT FROM SHORTY BISWAS RN. PATIENT IS ALERT AND ORIENTED X4 AND SPEAKS BOTSWANAN. PATIENT TOLERATES PO MEDICATIONS AND DIET WELL. PATIENT VOIDS ADEQUATELY AND HAD 1 BOWEL MOVEMENT. STOOL SAMPLE COLLECTED FOR OCCULT STOOL BLOOD TEST. VITAL SIGNS STABLE. PATIENT DENIES PAIN. HOURLY ROUNDING COMPLETED. PATIENT WOULD LIKE TO GO HOME. NO ACUTE DISTRESS NOTED. ALL NEEDS MET AT THIS TIME. ENDORSED CARE TO NIKHIL WHATLEY, FOR CONTINUATION OF CARE.
[2022-04-02] MEDS: GUAIFENESIN/DEXTROMETHORPHAN 5 ML UDC PO PRN (03:38)
[2022-04-02 05:52] VITALS: BP 124/76
[2022-04-02] MEDS: PANTOPRAZOLE SODIUM 40 MG TABLET.DR PO SCH (06:20)
[2022-04-02] MEDS: LEVOTHYROXINE SODIUM 150 MCG TABLET PO SCH (06:20)
[2022-04-02 09:36] LABS: HEMATOCRIT 26.4 % (31.2-41.9); MEAN CORPUSCULAR HEMOGLOBIN 31.7 uug (24.7-32.8); MEAN CORPUSCULAR VOLUME 95.8 fL (75.5-95.3); PLATELET COUNT (AUTO) 319 K/uL (179-408)
[2022-04-02 09:44] LABS: CREATININE 1.4 mg/dL (0.6-1.3); POTASSIUM 4.5 mmol/L (3.5-5.1)
[2022-04-02] MEDS: ENSURE ENLIVE (VAN) 240 ML LIQUID PO SCH (09:55)
[2022-04-02 09:58] LABS: THYROID STIMULATING HORMONE 51.025 mIU/mL (0.358-3.740)
[2022-04-02 11:09] VITALS: BP 153/90
[2022-04-02] MEDS ORDERED: MULT-594 PO (11:25)
[2022-04-02] MEDS ORDERED: MIRT-121 PO (11:25)
[2022-04-02] MEDS ORDERED: LEVO150T PO (11:25)
[2022-04-02 11:57] LABS: IRON, SERUM 28 ug/dL (50-175)
--- NOTE | 2022-04-02 14:48 | NUR ---
PATIENT ALERT AND ABLE TO MAKE NEEDS KNOWN. DENIES PAIN. AMBULATE TO REST ROOM WITH X1 ASSISTANCE. POLINA REITERATED THE IMPORTANCE OF ASKING FOR ASSISTANCE WHEN AMBULATING TO PREVENT FALLS. PATIENT DISCHARGED TO HOME WITH HOME HEALTH. DISCHARGE INSTRUCTIONS GIVEN BY PHARMACEUTICAL SALES REPRESENTATIVE TO PATIENT AND CAREGIVER (MOM). MIDLINE REMOVED FROM EMANI, NO BLEEDING NOTED. ACCOMPANIED BY ALL NECESSARY DOCUMENTS. MOTHER TO MAKE FOLLOW UP APPOINTMENT WITH PCP. INSTRUCTED TO COME BACK TO HOSPITAL FOR SOB, DIFFICULTY BREATHING, OR CHEST DISCOMFORT. PATIENT TO ANDROID DEVELOPER MEDS FROM PREFERRED PHARMACY. DEPARTED AT 1448 VIA W/C TO CAR. NO CONCERNS NOTED. LEELEE Pickens RN, BSN.
== END 2022-04-02 14:48 | disposition home health service (06) | DRG 643 ==
LOC: ER 13:59 → TRANSITION 19:43 → MEDSURG3 03-21 21:21 → TELE-TD3 03-21 21:25 → TELE3 03-25 08:36 → MEDSURG3 03-29 08:53 → MED 04-01 00:42
PROVIDERS: ADMIT Internal Medicine; ATTEND Internal Medicine
PROC: 30233N1 Transfusion of Nonautologous Red Blood Cells into Peripheral Vein, Percutaneous Approach (ICD-10-PCS; principal; 2022-03-30)
PROC: 05H533Z Insertion of Infusion Device into Right Subclavian Vein, Percutaneous Approach (ICD-10-PCS; 2022-03-30)
PROC: B546ZZA Ultrasonography of Right Subclavian Vein, Guidance (ICD-10-PCS; 2022-03-30)
DX: E06.3 Autoimmune thyroiditis (principal); G92.8 Other toxic encephalopathy; N17.0 Acute kidney failure with tubular necrosis; K85.90 Acute pancreatitis without necrosis or infection, unspecified; E87.1 Hypo-osmolality and hyponatremia; M62.82 Rhabdomyolysis; R65.10 Systemic inflammatory response syndrome (SIRS) of non-infectious origin without acute organ dysfunction; D63.8 Anemia in other chronic diseases classified elsewhere; E83.39 Other disorders of phosphorus metabolism; E83.52 Hypercalcemia; Z20.822 Contact with and (suspected) exposure to COVID-19; Z91.199 Patient's noncompliance with other medical treatment and regimen due to unspecified reason; J32.9 Chronic sinusitis, unspecified; E86.9 Volume depletion, unspecified; E87.6 Hypokalemia; R74.01 Elevation of levels of liver transaminase levels; F99 Mental disorder, not otherwise specified
CPT/HCPCS: 36415; 36600; 51702; 70030-TC; 70450; 71045; 76856; 82533; 83550; 83690; 83735; 83930; 83935; 83970; 84100; 84156; 84300; 84443; 84484; 84550; 85025; 85730; 86140; 86850; 86900; 86901; 86920; 93005; 93307; A4663; A6209; C9113; G0378; G0480; J1200; J1630; J1650; J2001; J2543; J3370; J3475; J3480; J7040; J7042; J7050; P9016